=== PATIENT | male | born 1955 | race Two or more races ===

== ENCOUNTER 2017-05-24 14:52 | Observation (INO) | payer MEDICARE ==
[~2017-05-24] VITALS: Ht 177.8 cm; Wt 75.3 kg
[~2017-05-24 14:52] MED LIST: ALPR0.25 PO; ASPI-496 PO; ATOR10TA PO; ATOR40TA78 PO; ATOR80TA PO; CARB1TAB22 PO; CARB1TAB44 PO; CARB25TA3 PO; CLON-365 PO; CLOP75TA22 PO; EZET10TA3 PO; METO-93 PO; OMEP-110 PO; PRAM1.5T PO; PRAM1.5T7 PO; RASA1TAB PO; RISP0.5T3 PO; TRIH2TAB3 PO; [UNRECOGNIZED DRUG - REMARK] PO
[2017-05-24] MEDS ORDERED: PIMA17TA PO (15:36)
[2017-05-24] MEDS ORDERED: CARB1CAP5 PEG (15:36)
[2017-05-24] MEDS ORDERED: CARBIDOPA/LEVODOPA 25 MG/100 MG TABLET PO ONE (15:43)
[2017-05-24] MEDS ORDERED: LORazepam 2 MG/ML, 1ML ONE (15:52)
[2017-05-24] MEDS ORDERED: ASPIRIN 81 MG TABLET CHEW ONE (15:52)
[2017-05-24] MEDS ORDERED: MORPHINE SULFATE 4 MG/ML, 1ML ONE (15:52)
[2017-05-24] MEDS ORDERED: NITROGLYCERIN SINGLE TAB 0.4 MG SL ONE (15:52)
[2017-05-24] MEDS ORDERED: ONDANSETRON 2MG/ML, 2ML ONE (15:52)
[2017-05-24] MEDS ORDERED: ONDANSETRON 2MG/ML, 2ML IVPush ONE (16:00)
[2017-05-24] MEDS ORDERED: SODIUM CHLORIDE FLUSH 10ML SYR IVF ONE (16:00)
[2017-05-24] MEDS ORDERED: MORPHINE SULFATE 4 MG/ML, 1ML IVPush PRN (16:00)
[2017-05-24] MEDS ORDERED: NITROGLYCERIN SINGLE TAB 0.4 MG SL PRN (16:00)
[2017-05-24] MEDS ORDERED: ASPIRIN 81 MG TABLET CHEW PO ONE (16:00)
[2017-05-24] MEDS ORDERED: LORazepam 2 MG/ML, 1ML IM PRN (16:00)
[2017-05-24 16:33] LABS: BLOOD UREA NITROGEN 31 mg/dL (7-18)
[2017-05-24 16:38] LABS: ASPARTATE AMINO TRANSFERASE 15 U/L (15-37)
[2017-05-24 16:41] LABS: IS PT STATUS REG ER OR PRE ER? YES
[2017-05-24] MEDS ORDERED: ACETAMINOPHEN 325 MG TABLET PO PRN (18:30)
[2017-05-24] MEDS ORDERED: ONDANSETRON ODT 4 MG PO PRN (18:30)
[2017-05-24] MEDS ORDERED: ENALAPRILAT 1.25 MG/ML, 2ML IVPush PRN (18:30)
[2017-05-24] MEDS ORDERED: BISACODYL 10 MG SUPP PR PRN (18:30)
[2017-05-24] MEDS ORDERED: morphine SULFATE 10 MG/ML, 1ML IVPush PRN (18:30)
[2017-05-24] MEDS ORDERED: NITROGLYCERIN 0.4 MG BOTTLE (25 TABS) SL PRN (18:30)
[2017-05-24] MEDS ORDERED: LORazepam 0.5MG TABLET PO PRN (18:30)
[2017-05-24 20:08] VITALS: BP 146/66
[2017-05-24] MEDS: HEPARIN 5,000 UNITS/ML, 1ML SQ SCH (20:22)
[2017-05-24] MEDS: OMEPRAZOLE 20 MG CAPSULE.DR PO SCH (20:22)
[2017-05-24] MEDS ORDERED: CARBIDOPA/LEVODOPA CR 25 MG/100 MG TABLET PO SCH (21:00)
[2017-05-24] MEDS: CARBIDOPA/LEVODOPA CR 25 MG/100 MG TABLET PO SCH (22:01)
[2017-05-25 00:03] LABS: IS PT STATUS REG ER OR PRE ER? NO
[2017-05-25 02:12] VITALS: BP 124/70
[2017-05-25] MEDS: CARBIDOPA/LEVODOPA CR 25 MG/100 MG TABLET PO SCH ×4 (02:30→13:57)
[2017-05-25] MEDS: HEPARIN 5,000 UNITS/ML, 1ML SQ SCH ×3 (04:00→14:31)
[2017-05-25 05:01] LABS: BLOOD UREA NITROGEN 27 mg/dL (7-18)
[2017-05-25 05:06] LABS: IS PT STATUS REG ER OR PRE ER? NO
[2017-05-25] MEDS ORDERED: ASPIRIN 81 MG TABLET EC PO SCH (09:00)
[2017-05-25] MEDS ORDERED: LEVODOPA PEG SCH (09:00)
[2017-05-25] MEDS ORDERED: CARBIDOPA PEG SCH (09:00)
[2017-05-25] MEDS ORDERED: PIMAVANSERIN TARTRATE 17 MG PO SCH (09:00)
[2017-05-25] MEDS ORDERED: METOPROLOL SUCCINATE 50 MG TAB.ER.24H PO SCH (09:00)
[2017-05-25 09:30] VITALS: BP 143/86
[2017-05-25] MEDS: OMEPRAZOLE 20 MG CAPSULE.DR PO SCH (10:27)
[2017-05-25] MEDS ORDERED: DOCUSATE 100 MG CAPSULE ONE (13:53)
[2017-05-25] MEDS ORDERED: DOCUSATE 100 MG CAPSULE PO PRN (14:30)
[2017-05-25] MEDS ORDERED: LORA-445 PO (14:41)
[2017-05-25 15:10] VITALS: BP 138/73
[2017-05-26] MEDS ORDERED: PIMAVANSERIN TARTRATE 34 MG PO SCH (09:00)
== END 2017-05-25 16:30 | disposition home or self-care (01) ==
LOC: ED 17:22 → INTOOBSV 17:25 → EDIP 17:25 → 5SO 18:41
PROVIDERS: ADMIT Internal Medicine; ATTEND Internal Medicine
DX: R07.2 Precordial pain (principal); G20 Parkinson's disease; I25.119 Atherosclerotic heart disease of native coronary artery with unspecified angina pectoris; F41.9 Anxiety disorder, unspecified; K21.9 Gastro-esophageal reflux disease without esophagitis; I25.2 Old myocardial infarction; F22 Delusional disorders; E78.5 Hyperlipidemia, unspecified; F91.9 Conduct disorder, unspecified; I11.9 Hypertensive heart disease without heart failure; I35.8 Other nonrheumatic aortic valve disorders; I49.3 Ventricular premature depolarization; Z95.1 Presence of aortocoronary bypass graft
CPT/HCPCS: 36415; 71010; 80048; 80053; 83605; 83735; 84100; 84439; 84443; 84484; 85025; 93005; 93306; 96372; 96374; 96375; 96376; 97161; 97165; 99285; G0378; J1644; J2060; J2270; J2405

== ENCOUNTER 2019-10-03 09:43 | Outpatient (CLI) | payer MEDICARE ==
[~2019-10-03 09:43] MED LIST changes: +CARB1CAP5 PEG; +CARB1TAB47 PO; -CLON-365 PO; +CLON1TAB11 PO; -CLOP75TA22 PO; +CLOP75TA52 PO; -EZET10TA3 PO; +EZET10TA70 PO; +LORA-445 PO; +PIMA17TA PO; +PRAM2.25 PO; -RASA1TAB PO; +RASA1TAB2 PO
[2019-10-03] MEDS ORDERED: CARB1TAB44 PO (11:06)
[2019-10-03] MEDS ORDERED: OMEP-110 PO (11:06)
[2019-10-03] MEDS ORDERED: MULT-717 PO (11:07)
[2019-10-03 11:17] LABS: BASOPHILS # (AUTO) 0.04 x10^3/uL (0-0.1); BASOPHILS % (AUTO) 1 % (0-1); EOSINOPHILS % (AUTO) 4 % (1-7); LYMPHOCYTES % (AUTO) 27 % (22-44); MD NO; MEAN CORPUSCULAR HEMOGLOBIN 29.6 pg (27.5-34.5); MEAN CORPUSCULAR HGB CONC 32.5 g/dL (33.2-36.2); MEAN PLATELET VOLUME 8.4 fL (7.4-10.4); MONOCYTES % (AUTO) 8 % (2-9); NEUTROPHILS # (AUTO) 4.84 x10^3/uL (1.8-6.8); NEUTROPHILS % (AUTO) 62 % (42-75); PLATELET COUNT 226 x10^3/uL (130-400); RED BLOOD COUNT 5.01 x10^6/uL (4.38-5.82); RED CELL DISTRIBUTION WIDTH 14.3 % (9.4-14.8)
[2019-10-03 11:26] LABS: CHLORIDE 107 mmol/L (98-107)
[2019-10-03 11:30] LABS: ANION GAP 9 mmol/L (5-15); CALCIUM 9.4 mg/dL (8.5-10.1); CREATININE 1.21 mg/dL (0.7-1.3)
[2019-10-04] MEDS ORDERED: TICA90TA PO (08:56)
== END 2019-10-03 23:59 | disposition home or self-care (01) ==
LOC: CFH 09:43
PROVIDERS: ATTEND Psychiatry & Neurology Neurology
DX: I25.10 Atherosclerotic heart disease of native coronary artery without angina pectoris (principal); I10 Essential (primary) hypertension
CPT/HCPCS: 36415; 80048; 85025

== ENCOUNTER 2019-10-03 10:27 | Observation (INO) | payer MEDICARE ==
[~2019-10-03] VITALS: Ht 177.8 cm; Wt 77.3 kg
[2019-10-03] MEDS ORDERED: SODIUM CHLORIDE 0.9% 1,000 ML IV SCH (10:51)
[2019-10-03 10:55] VITALS: BP 134/73
[2019-10-03] MEDS ORDERED: ASPIRIN 325 MG TABLET EC PO ONE (11:00)
[2019-10-03] MEDS ORDERED: CARB1TAB44 PO (11:06)
[2019-10-03] MEDS ORDERED: OMEP-110 PO (11:06)
[2019-10-03] MEDS ORDERED: MULT-717 PO (11:07)
[2019-10-03] MEDS ORDERED: ASPIRIN 325 MG TABLET EC ONE (11:13)
[2019-10-03] MEDS ORDERED: FENTANYL PF 100 MCG/2ML ONE (11:43)
[2019-10-03] MEDS ORDERED: VERAPAMIL 2.5 MG/ML, 2ML ONE (11:43)
[2019-10-03] MEDS ORDERED: MIDAZOLAM 1 MG/ML, 5ML ONE (11:43)
[2019-10-03] MEDS ORDERED: NITROGLYCERIN 5 MG/ML, 10ML ONE (11:43)
[2019-10-03] MEDS ORDERED: LIDOCAINE-MPF 1%, 5ML ONE (11:44)
[2019-10-03] MEDS ORDERED: HEPARIN 1,000 UNITS/ML, 10ML ONE (11:44)
[2019-10-03] MEDS ORDERED: LIDOCAINE 1%, 20ML ONE (11:53)
[2019-10-03] MEDS ORDERED: BIVALIRUDIN 250 MG ONE (12:02)
[2019-10-03] MEDS ORDERED: TICAGRELOR 90 MG TABLET ONE (13:10)
[2019-10-03] MEDS ORDERED: BIVALIRUDIN 250 MG in SODIUM CHLORIDE 0.9% 50 ML IV SCH (13:20)
[2019-10-03] MEDS ORDERED: BISACODYL 10 MG SUPP PR PRN (13:30)
[2019-10-03] MEDS ORDERED: ZOLPIDEM 5MG TABLET PO PRN (13:30)
[2019-10-03] MEDS ORDERED: OMEPRAZOLE 20 MG CAPSULE.DR PO PRN (13:30)
[2019-10-03] MEDS ORDERED: ACETAMINOPHEN 325 MG TABLET PO PRN (13:30)
[2019-10-03] MEDS ORDERED: CARBIDOPA PO SCH (14:00)
[2019-10-03] MEDS ORDERED: LEVODOPA PO SCH (14:00)
[2019-10-03] MEDS ORDERED: [UNRECOGNIZED DRUG - OTHER] PO SCH (14:00)
[2019-10-03] MEDS: CARBIDOPA/LEVODOPA 25 MG/100 MG TABLET PO SCH ×2 (14:43→18:07)
[2019-10-03] MEDS: SODIUM CHLORIDE 0.45% 1,000 ML IV SCH ×3 (14:47→23:47)
[2019-10-03 19:58] VITALS: BP 121/63
[2019-10-03] MEDS ORDERED: LORazepam 2 MG/ML, 1ML IVPush PRN (20:00)
[2019-10-03] MEDS ORDERED: LORazepam 2 MG/ML, 1ML ONE (20:00)
[2019-10-03] MEDS: TICAGRELOR 90 MG TABLET PO SCH (20:06)
[2019-10-03] MEDS ORDERED: ATORVASTATIN 40 MG TABLET PO SCH (21:00)
[2019-10-03] MEDS ORDERED: CARBIDOPA/LEVODOPA CR 50 MG/200 MG TABLET PO SCH (21:00)
[2019-10-04 01:42] VITALS: BP 130/66
[2019-10-04 04:57] LABS: ANION GAP 8 mmol/L (5-15); CALCIUM 8.9 mg/dL (8.5-10.1); CHLORIDE 110 mmol/L (98-107); CREATININE 0.88 mg/dL (0.7-1.3)
[2019-10-04] MEDS: CARBIDOPA/LEVODOPA 25 MG/100 MG TABLET PO SCH ×2 (06:10→09:28)
[2019-10-04 08:18] VITALS: BP 138/75
[2019-10-04] MEDS ORDERED: TICA90TA PO (08:56)
[2019-10-04] MEDS ORDERED: PRAMIPEXOLE DI HCL 2.25 MG PO SCH (09:00)
[2019-10-04] MEDS ORDERED: EZETIMIBE 10 MG TABLET PO SCH (09:00)
[2019-10-04] MEDS ORDERED: ASPIRIN 81 MG TABLET EC PO SCH ×2 (09:00)
[2019-10-04] MEDS ORDERED: METOPROLOL SUCCINATE 50 MG TAB.ER.24H PO SCH (09:00)
[2019-10-04] MEDS ORDERED: MULTIVITAMINS/MINERALS TABLET PO SCH (09:00)
[2019-10-04] MEDS ORDERED: TRIHEXYPHENIDYL 2MG TABLET PO SCH (09:00)
[2019-10-04] MEDS: TICAGRELOR 90 MG TABLET PO SCH (09:27)
[2019-10-04] MEDS: SODIUM CHLORIDE 0.45% 1,000 ML IV SCH (10:30)
== END 2019-10-04 10:50 | disposition home or self-care (01) ==
LOC: CACL 10:27 → 5SO 13:20 → CACL 15:04 → DCLOUNGE 10-04 10:33
PROVIDERS: ADMIT Internal Medicine Cardiovascular Disease; ATTEND Internal Medicine Cardiovascular Disease
DX: I25.110 Atherosclerotic heart disease of native coronary artery with unstable angina pectoris (principal); I10 Essential (primary) hypertension; E78.5 Hyperlipidemia, unspecified; I25.82 Chronic total occlusion of coronary artery; G20 Parkinson's disease; Z95.1 Presence of aortocoronary bypass graft; Z79.82 Long term (current) use of aspirin
CPT/HCPCS: 36415; 80048; 93005; 93459; 96374; 99156; 99157; C1725; C1760; C1769; C1874; C1887; C1894; C9600; G0378; J0583; J1644; J2060; J2250; J3010; J3490; Q9967

== ENCOUNTER → 2019-10-11 | Outpatient (CLI) | payer MEDICARE ==
[~2019-10-11] MED LIST changes: +MULT-717 PO; +TICA90TA PO
== END | disposition home or self-care (01) ==
LOC: CFH 10:33
PROVIDERS: ATTEND Physician Assistant Medical
DX: I10 Essential (primary) hypertension (principal); I25.10 Atherosclerotic heart disease of native coronary artery without angina pectoris
CPT/HCPCS: 71046

== ENCOUNTER → 2020-04-24 | Outpatient (CLI) | payer MEDICARE ==
[2020-04-24 12:56] LABS: ALBUMIN 3.8 g/dL (3.4-5.0); ANION GAP 6 mmol/L (5-15); CHLORIDE 108 mmol/L (98-107)
[2020-04-24 13:01] LABS: ALANINE AMINOTRANSFERASE 11 U/L (12-78); ALKALINE PHOSPHATASE 60 U/L (45-117); BILIRUBIN,TOTAL 0.6 mg/dL (0.2-1.0); CALCIUM 8.9 mg/dL (8.5-10.1); CHOL/HDL RATIO 2.7; CHOLESTEROL, TOTAL 158 mg/dL (140-239); CREATININE 1.01 mg/dL (0.7-1.3); HDL CHOL % 37 % (26-37); HDL CHOLESTEROL (DIRECT) 59 mg/dL (40-60); LDL CHOLESTEROL,CALCULATED 73 mg/dL (54-169); LDL/HDL RATIO 1.2 (0.5-3.0); TOTAL PROTEIN 7.4 g/dL (6.4-8.2); TRIGLYCERIDES 132 mg/dL (50-200); VLDL CHOLESTEROL 26 mg/dL (0-25)
== END | disposition home or self-care (01) ==
LOC: CFH 10:47
PROVIDERS: ATTEND Internal Medicine Cardiovascular Disease
DX: I10 Essential (primary) hypertension (principal); I25.10 Atherosclerotic heart disease of native coronary artery without angina pectoris
CPT/HCPCS: 36415; 80053; 80061

== ENCOUNTER 2021-06-22 17:03 | Inpatient (IN) | payer MEDICARE ==
[~2021-06-22] VITALS: Ht 177.8 cm; Wt 76.5 kg
[~2021-06-22 17:03] MED LIST changes: -RISP0.5T3 PO; +RISP0.5T62 PO
[2021-06-22] MEDS ORDERED: ONDANSETRON 2MG/ML, 2ML IVPush ONE (17:30)
[2021-06-22] MEDS ORDERED: ONDANSETRON 2MG/ML, 2ML ONE (17:39)
[2021-06-22] MEDS ORDERED: MORPHINE SULFATE 4 MG/ML, 1ML ONE ×2 (17:39→20:31)
[2021-06-22] MEDS: MORPHINE SULFATE 4 MG/ML, 1ML IVPush PRN ×2 (17:41→20:35)
[2021-06-22 17:45] LABS: BASOPHILS % (AUTO) 1 % (0-1); EOSINOPHILS % (AUTO) 2 % (1-7); LYMPHOCYTES % (AUTO) 27 % (22-44); MEAN CORPUSCULAR HEMOGLOBIN 30.5 pg (27.5-34.5); MEAN CORPUSCULAR HGB CONC 34.3 g/dL (33.2-36.2); MEAN PLATELET VOLUME 8.1 fL (7.4-10.4); MONOCYTES % (AUTO) 8 % (2-9); NEUTROPHILS % (AUTO) 63 % (42-75); PLATELET COUNT 220 x10^3/uL (130-400); RED CELL DISTRIBUTION WIDTH 14.4 % (9.4-14.8)
[2021-06-22 17:53] LABS: ALBUMIN 3.5 g/dL (3.4-5.0); ANION GAP 7 mmol/L (5-15); CALCIUM 8.7 mg/dL (8.5-10.1); CHLORIDE 109 mmol/L (98-107); CREATININE 0.96 mg/dL (0.7-1.3)
[2021-06-22] MEDS ORDERED: PLEASE ENTER HEIGHT AND WEIGHT MC SCH (18:00)
[2021-06-22] MEDS ORDERED: NITROGLYCERIN 0.4 MG/HR PATCH TD ONE (18:30)
--- NOTE | 2021-06-22 18:58 | NUR ---
REPORT TO MARY ARANA AND BLAKE ARANA. [facility].
--- NOTE | 2021-06-22 19:00 | NUR ---
RECIEVED REPORT FROM ELROY ARANA
[2021-06-22] MEDS ORDERED: NITROGLYCERIN 0.4 MG BOTTLE (25 TABS) SL PRN (19:30)
[2021-06-22] MEDS ORDERED: OXYcodone IR 5MG TABLET PO PRN (19:30)
[2021-06-22] MEDS ORDERED: ACETAMINOPHEN 325 MG TABLET PO PRN (19:30)
[2021-06-22] MEDS ORDERED: BACLOFEN 10 MG TABLET PO PRN (19:30)
[2021-06-22] MEDS ORDERED: BISACODYL 5 MG EC TABLET PO PRN (19:30)
[2021-06-22] MEDS ORDERED: NITROGLYCERIN 0.4 MG/SPRAY SL PRN (19:30)
[2021-06-22] MEDS ORDERED: ONDANSETRON 2MG/ML, 2ML IV PRN (19:30)
[2021-06-22] MEDS ORDERED: morphine SULFATE 10 MG/ML, 1ML IV PRN (19:30)
[2021-06-22] MEDS ORDERED: ENOXAPARIN 40 MG/0.4 ML SQ SCH (19:30)
--- NOTE | 2021-06-22 20:10 | NUR ---
Patient given discharge instructions and they have confirmed that they understand the instructions. Patient ambulatory with steady gait. NAD, all questions answered appropriately, denies additional needs at this time. No personal belongings left in room after discharge.
--- NOTE | 2021-06-22 20:24 | NUR ---
CRITICAL TROP OF 1.94. NOTIFIED.
--- NOTE | 2021-06-22 20:25 | NUR ---
PATIENT TOLD TRANSPORT STAFF HE DID NOT WANT TO BE ADMITTED. NOTIFIED.
[2021-06-22] MEDS ORDERED: LORazepam 2 MG/ML, 1ML IVPush ONE (21:00)
[2021-06-22] MEDS ORDERED: PHARMACY MAY ADJ FOR RENAL FX MC PRN (21:00)
[2021-06-22] MEDS ORDERED: LORazepam 2 MG/ML, 1ML IVPush PRN (21:00)
[2021-06-22 21:23] VITALS: BP 93/56
[2021-06-22 21:28] VITALS: BP 123/69
[2021-06-22] MEDS: SODIUM CHLORIDE FLUSH 10ML SYR IVF SCH (21:45)
[2021-06-22] MEDS ORDERED: HEPARIN 25,000 UNITS/250ML PMX 250 ML IV PRN (22:00)
[2021-06-22] MEDS ORDERED: HEPARIN 5,000 UNITS/ML, 1ML IV PRN (22:00)
[2021-06-22] MEDS ORDERED: HEPARIN 5,000 UNITS/ML, 1ML IV ONE (22:00)
[2021-06-23] VITALS (7 sets, daily range): BP systolic 101–153; BP diastolic 46–90
[2021-06-23 04:27] LABS: ANION GAP 5 mmol/L (5-15); CALCIUM 8.8 mg/dL (8.5-10.1); CHLORIDE 107 mmol/L (98-107); CREATININE 0.79 mg/dL (0.7-1.3); TRIGLYCERIDES 71 mg/dL (50-200); VLDL CHOLESTEROL 14 mg/dL (0-25)
[2021-06-23 04:29] LABS: CHOL/HDL RATIO 3.6; CHOLESTEROL, TOTAL 239 mg/dL (140-239); HDL CHOL % 28 % (26-37); HDL CHOLESTEROL (DIRECT) 67 mg/dL (40-60); LDL CHOLESTEROL,CALCULATED 158 mg/dL (54-169); LDL/HDL RATIO 2.4 (0.5-3.0)
[2021-06-23] MEDS: CARBIDOPA/LEVODOPA 25 MG/100 MG TABLET PO SCH ×4 (05:14→20:08)
[2021-06-23] MEDS: ATORVASTATIN 80 MG TABLET PO SCH ×2 (05:14→20:08)
[2021-06-23] MEDS: CARVEDILOL 3.125 MG TABLET PO SCH ×2 (05:15→21:00)
[2021-06-23] MEDS ORDERED: LISINOPRIL 10 MG TABLET PO ONE (06:00)
[2021-06-23] MEDS: TRIHEXYPHENIDYL 2MG TABLET PO SCH (08:29)
[2021-06-23] MEDS: SODIUM CHLORIDE FLUSH 10ML SYR IVF SCH ×2 (08:29→20:09)
[2021-06-23] MEDS: PRAMIPEXOLE 0.5MG TABLET PO SCH (08:29)
[2021-06-23] MEDS: ASPIRIN 81 MG TABLET CHEW PO SCH (08:29)
[2021-06-23 11:46] LABS: MEAN CORPUSCULAR HEMOGLOBIN 30.1 pg (27.5-34.5); MEAN CORPUSCULAR HGB CONC 34.1 g/dL (33.2-36.2); MEAN PLATELET VOLUME 7.9 fL (7.4-10.4); PLATELET COUNT 191 x10^3/uL (130-400); RED BLOOD COUNT 4.66 x10^6/uL (4.38-5.82); RED CELL DISTRIBUTION WIDTH 14.4 % (9.4-14.8)
[2021-06-23 11:55] LABS: ANION GAP 9 mmol/L (5-15); CALCIUM 8.6 mg/dL (8.5-10.1); CHLORIDE 105 mmol/L (98-107); CREATININE 0.76 mg/dL (0.7-1.3); INTERNATIONAL NORMALIZED RATIO 1.03 (0.93-1.1)
[2021-06-23] MEDS ORDERED: FENTANYL PF 100 MCG/2ML ONE (16:19)
[2021-06-23] MEDS ORDERED: PROPOFOL 50 ML ONE (16:19)
[2021-06-23] MEDS ORDERED: BIVALIRUDIN 250 MG ONE ×2 (16:38→17:43)
[2021-06-23] MEDS ORDERED: LIDOCAINE-MPF 1%, 5ML ONE (16:38)
[2021-06-23] MEDS ORDERED: HEPARIN 1,000 UNITS/ML, 10ML ONE (16:38)
[2021-06-23] MEDS ORDERED: VERAPAMIL 2.5 MG/ML, 2ML ONE (16:38)
[2021-06-23] MEDS ORDERED: MIDAZOLAM 1 MG/ML, 2ML ONE (16:40)
[2021-06-23] MEDS ORDERED: VASOPRESSIN 20 UNIT/ML, 1ML ONE (17:32)
[2021-06-23] MEDS ORDERED: TICAGRELOR 90 MG TABLET ONE (17:43)
[2021-06-23] MEDS ORDERED: ONDANSETRON 2MG/ML, 2ML IVPush PRN (18:00)
[2021-06-23] MEDS ORDERED: DIPHENHYDRAMINE 50 MG/ML, 1ML IVPush PRN (18:00)
[2021-06-23] MEDS ORDERED: LABETALOL 5MG/ML, 20ML IV PRN (18:00)
[2021-06-23] MEDS ORDERED: FENTANYL PF 100 MCG/2ML IV PRN (18:00)
[2021-06-23] MEDS ORDERED: ACETAMINOPHEN 325 MG TABLET PO PRN (18:00)
[2021-06-23] MEDS ORDERED: SODIUM CHLORIDE 0.9% 1,000 ML IV SCH (18:00)
[2021-06-23] MEDS ORDERED: BIVALIRUDIN 250 MG in SODIUM CHLORIDE 0.9% 50 ML IV SCH (18:00)
[2021-06-23] MEDS ORDERED: EPHEDRINE 50 MG/ML, 1ML IVPush PRN (18:00)
[2021-06-23] MEDS ORDERED: morphine SULFATE 10 MG/ML, 1ML IVPush PRN (18:00)
[2021-06-23] MEDS ORDERED: OXYcodone 5 MG/5 ML ORAL.SOL UDC PO PRN (18:00)
[2021-06-23] MEDS ORDERED: TICAGRELOR 90 MG TABLET PO ONE (19:00)
[2021-06-23] MEDS ORDERED: TICAGRELOR 90 MG TABLET PO SCH (21:00)
[2021-06-24 00:42] VITALS: BP 136/74
[2021-06-24] MEDS: CARBIDOPA/LEVODOPA 25 MG/100 MG TABLET PO SCH ×2 (06:03→11:45)
[2021-06-24] MEDS: CARVEDILOL 3.125 MG TABLET PO SCH (06:03)
[2021-06-24] MEDS ORDERED: TICAGRELOR 90 MG TABLET PO SCH (09:00)
[2021-06-24 09:05] VITALS: BP 94/55
[2021-06-24] MEDS: TRIHEXYPHENIDYL 2MG TABLET PO SCH (09:19)
[2021-06-24] MEDS: ASPIRIN 81 MG TABLET CHEW PO SCH (09:20)
[2021-06-24] MEDS: PRAMIPEXOLE 0.5MG TABLET PO SCH (09:20)
[2021-06-24] MEDS: SODIUM CHLORIDE FLUSH 10ML SYR IVF SCH (09:22)
[2021-06-24] MEDS ORDERED: NITR0.4T28 SL (11:52)
[2021-06-24] MEDS ORDERED: TICA90TA PO (11:52)
[2021-06-24 14:57] VITALS: BP 139/74
== END 2021-06-24 15:50 | disposition home or self-care (01) | DRG 246 ==
LOC: ED 19:30 → EDIP 20:23 → 5SO 20:52 → OBSVTOIN 06-23 11:17
PROVIDERS: ADMIT Internal Medicine; ATTEND Family Medicine
PROC: 4A023N7 Measurement of Cardiac Sampling and Pressure, Left Heart, Percutaneous Approach (ICD-10-PCS; 2021-06-23)
PROC: B2111ZZ Fluoroscopy of Multiple Coronary Arteries using Low Osmolar Contrast (ICD-10-PCS; 2021-06-23)
PROC: B2131ZZ Fluoroscopy of Multiple Coronary Artery Bypass Grafts using Low Osmolar Contrast (ICD-10-PCS; 2021-06-23)
PROC: 027034Z Dilation of Coronary Artery, One Artery with Drug-eluting Intraluminal Device, Percutaneous Approach (ICD-10-PCS; principal; 2021-06-23 16:30)
DX: T82.855A Stenosis of coronary artery stent, initial encounter (principal); I21.4 Non-ST elevation (NSTEMI) myocardial infarction; G25.9 Extrapyramidal and movement disorder, unspecified; I25.110 Atherosclerotic heart disease of native coronary artery with unstable angina pectoris; I11.9 Hypertensive heart disease without heart failure; E78.5 Hyperlipidemia, unspecified; F22 Delusional disorders; F41.1 Generalized anxiety disorder; G20 Parkinson's disease; Y84.0 Cardiac catheterization as the cause of abnormal reaction of the patient, or of later complication, without mention of misadventure at the time of the procedure; I25.2 Old myocardial infarction; Z82.49 Family history of ischemic heart disease and other diseases of the circulatory system; Z87.891 Personal history of nicotine dependence; Z95.1 Presence of aortocoronary bypass graft; Y92.89 Other specified places as the place of occurrence of the external cause; Z90.49 Acquired absence of other specified parts of digestive tract
CPT/HCPCS: 36415; 71045; 80048; 80061; 82040; 83880; 84484; 84703; 85025; 85027; 85520; 85610; 85730; 93005; 93458; 96374; 96375; 96376; C1769; C1894; C8929; C9600; G0378; J0583; J1644; J2250; J2405; J2704; J3010; Q9957; C1725; C1874; C1887; J2060; J2270; Q9967